=== PATIENT | male | born 1930 | race Caucasian/White ===

== ENCOUNTER 2017-02-01 14:31 | Emergency (ER) | payer MEDICARE ==
--- NOTE | 2017-02-01 16:08 | RAD ---
INDICATION: Several weeks LEFT lower extremity swelling. COMPARISON: No relevant prior exams available on the [facility] for comparison. TECHNIQUE: Giraldo scale, color Doppler, and spectral analysis of the deep veins of the LEFT lower extremity. Vessel compression, phasicity, and augmentation assessed. REPORT: Severe subcutaneous edema most prominent from the knee distal. The LEFT common femoral, great saphenous, profunda femoral, femoral, popliteal, peroneal, and posterior tibial veins are patent. Normal morphology 0.8 cm short axis LEFT inguinal lymph node without concern. Patency of the RIGHT common femoral vein documented. IMPRESSION: 1. No evidence for LEFT lower extremity deep venous thrombosis. 2. Extensive LEFT lower extremity subcutaneous edema.
[2017-02-01 16:34] VITALS: BP 142/74
--- NOTE | 2017-02-01 20:28 | UC ---
Odalys Hall Thomas, scribed for Kenny Darnell MD on 02/01/17 at 1616 . Lower Extremity/Ankle HPI - HPI Summary HPI Summary: The pt is a 86 y/o M presenting to Urgent Care after his physical therapist noticed earlier today that the patient had left lower extremity swelling. The patient denies constant LLE pain, although he notes LLE pain upon palpation. The patient also some redness to his LLE. When asked about the onset of this erythema, the patient suspects an onset two weeks ago with worsening redness in the last week. The patient was recently started on water pills. Pt additionally c/o chronic SOB and lower extremity warmness. Pt denies fevers and chills. - History of Current Complaint Chief Complaint: UCLowerExtremity Stated Complaint: LEG SWELLING Time Seen by Provider: 02/01/17 15:23 Hx Obtained From: Patient Onset/Duration: Lasting Hours - first noticed earlier today, Still Present Severity Currently: Moderate Aggravating Factor(s): Other - Palpation Alleviating Factor(s): Nothing - Allergies/Home Medications Allergies/Adverse Reactions: Allergies Allergy/AdvReac Type Severity Reaction Status Date / Time Erythromycin Allergy unk Verified 04/20/16 13:23 Iodinated Diagnostic Agents Allergy See Comment Verified 04/20/16 13:23 contrast dye Allergy kidney Uncoded 04/20/16 13:23 failure Home Medications: Home Medications Mirabegron (NF) [Myrbetriq (NF)] 50 mg PO DAILY 02/01/17 [History Confirmed ] Ranitidine HCl [Zantac] 150 mg PO DAILY 02/01/17 [History Confirmed 02/01/17] Torsemide TAB* [Demadex 20 MG*] 5 mg PO DAILY 02/01/17 [History Confirmed ] PMH/Surg Hx/FS Hx/Imm Hx Previously Healthy: No - Valvular disease, HTN, COPD - Surgical History Surgical History: Yes Surgery Procedure, Year, and Place: rotator cuff X2, knee replacement X2, carpal tunnel, hernia repair - Family History Known Family History: Positive: Hypertension - Social History Occupation: Retired Alcohol Use: None Alcohol Amount: 1 drink Substance Use Type: None Smoking Status (MU): Never Smoked Tobacco - Immunization History Most Recent Influenza Vaccination: UP TO DATE Most Recent Tetanus Shot: UP TO DATE Most Recent Pneumonia Vaccination: UP TO DATE Review of Systems Skin: Other - Lower extremity warmness Respiratory: Shortness Of Breath - chronic Musculoskeletal: Other: - LLE swelling, LLE pain upon palpation, LLE weakness Is Patient Immunocompromised?: No All Other Systems Reviewed And Are Negative: Yes Physical Exam Triage Information Reviewed: Yes Vital Signs: Initial Vital Signs Temp 97.5 F 02/01/17 15:06 Pulse 67 02/01/17 15:06 Resp 18 02/01/17 15:06 BP 125/88 02/01/17 15:06 Pulse Ox 96 02/01/17 15:06 Vital Signs Reviewed: Yes - Additional Comments VITAL SIGNS: Reviewed. GENERAL: Patient is a well developed and nourished who is lying comfortable in the stretcher. Patient is not in any acute respiratory distress. HEAD AND FACE: Normocephalic EYES: PERRLA, EOMI x 2. EARS: Hearing grossly intact. MOUTH: Oropharynx within normal limits. NECK: Supple, trachea is midline, no adenopathy, no JVD, no carotid bruit. CHEST: Symmetric, no tenderness at palpation LUNGS: Clear to auscultation bilaterally. No wheezing or crackles. CVS: Regular rate and rhythm, S1 and S2 present, no murmurs or gallops appreciated. ABDOMEN: Soft, non-tender. Bowel sounds are normal. No abdominal abnormal pulsations. EXTREMITIES: There is swelling in the left lower extremity 1+ with some erythema , especially in the anterior aspect of the leg. There are good pulses and good capillary refills. Full ROM in all major joints, no cyanosis or clubbing. NEURO: Alert and oriented x 3. No acute neurological deficits. Speech is normal and follows commands. SKIN: Dry and warm Diagnostics - Laboratory Diagnostic Studies Completed/Ordered: Ultrasound Bilateral Lower Extremity. Interpreted by radiologist. Impression: 1. No evidence for LEFT lower extremity deep venous thrombosis. 2. Extensive LEFT lower extremity subcutaneous edema. Urgent Care physician has reviewed this report and agrees. Lower Extremity Course/Dx - Course Course Of Treatment: The pt is a 86 y/o M presenting to Urgent Care after his physical therapist noticed earlier today that the patient had left lower extremity swelling. The patient denies constant LLE pain, although he notes LLE pain upon palpation. The patient also some redness to his LLE. When asked about the onset of this erythema, the patient suspects an onset two weeks ago with worsening redness in the last week. The patient was recently started on water pills. Pt additionally c/o chronic SOB and lower extremity warmness. Pt denies fevers and chills. The ultrasound of the LLE extremity is negative for DVT. The patient has 1+ edema, for which the patient was given Lasix. Also, the patient has had erythema for the last two weeks that has worsened in the last two days. Therefore, I believe the patient is developing cellulitis. I offered the patient to go to the emergency department for bloodwork and further workup, but the patient declined. Since the patient is not going to the emergency department, I decided to place the patient on Bactrim and instructed him to follow up with his primary care provider in two days. The patient was also instructed that if his symptoms worsen, he should go to the emergency department for further assessment and workup. - Differential Dx/Diagnosis Differential Diagnosis/HQI/PQRI: Bursitis, Cellulitis, DVT, Sprain, Strain Provider Diagnoses: Left lower extremity edema, cellulitis Discharge - Discharge Plan Condition: Stable Disposition: HOME Prescriptions: Sulfamethox/Trimethoprim DS* [Bactrim DS 800/160 TAB*] 1 tab PO BID #20 tab Patient Education Materials: Cellulitis (ED), Leg Edema (ED) Referrals: Bernarda Salas MD [Primary Care Provider] - 3 Days Additional Instructions: Follow up with your primary care provider in 3 days. Return to urgent care for any new or worsening symptoms. The documentation as recorded by the Odalys meyer Thomas accurately reflects the service I personally performed and the decisions made by , Kenny Darnell MD.
== END 2017-02-01 16:50 | disposition home or self-care (01) ==
LOC: UCEAST 14:31
DX: R60.9 Edema, unspecified (principal); L03.116 Cellulitis of left lower limb; I38 Endocarditis, valve unspecified
CPT/HCPCS: 99212; G0463

== ENCOUNTER 2017-03-07 16:32 | Inpatient (IN) | payer MEDICARE ==
--- NOTE | 2017-03-07 18:27 | RAD ---
INDICATION: Chest pain COMPARISON: March 06, 2017 TECHNIQUE: An AP portable view obtained at 0608 hours is submitted. FINDINGS: Bones/Soft Tissues: There are no acute bony findings. There is left shoulder arthroplasty. There is right shoulder rotator cuff repair. Cardiomediastinal: The cardiac silhouette is prominent as are the central pulmonary vessels. Lungs: There are no infiltrates. Pleura: Small bilateral pleural effusions. Other: None IMPRESSION: MILD INTERSTITIAL CONGESTION.
[2017-03-07 18:52] LABS: Hematocrit 28 % (42-52); Hemoglobin 9.1 g/dl (14.0-18.0); Mean Corpuscular HGB Conc 33 g/dl (31-36); Mean Corpuscular Hemoglobin 31 pg (27-31); Mean Corpuscular Volume 96 fL (80-94); Mean Platelet Volume 8 um3 (7.4-10.4); Red Blood Count 2.92 10^6/ul (4.0-5.4); Red Cell Distribution Width 16 % (10.5-15); White Blood Count 5.3 10^3/ul (3.5-10.8)
[2017-03-07 19:07] LABS: Albumin 3.6 g/dL (3.2-5.2); BUN/Creatinine Ratio 12.7 (8-20); Calcium 9.3 mg/dL (8.6-10.3); EGFR African American 19.6 (>60); EGFR Non-African American 15.2 (>60); Globulin 2.7 g/dL (2-4); Magnesium 2.5 mg/dL (1.9-2.7); Potassium 4.7 mmol/L (3.5-5.0); Total Bilirubin 0.5 mg/dL (0.2-1.0); Total Protein 6.3 g/dL (6.4-8.9)
[2017-03-07 19:14] LABS: Troponin I 0.16 ng/mL (<0.04)
[2017-03-07 19:35] LABS: TSH (Thyroid Stimulating Horm) 1.35 mcIU/mL (0.34-5.60)
[2017-03-07] MEDS ORDERED: Furosemide IV* 10 MG/ML VIAL (40 MG) IV ONE (19:41)
[2017-03-07] MEDS ORDERED: Nitroglycerin 2% OINT* 1 GM PAK TOPICAL ONE (19:41)
[2017-03-07] MEDS ORDERED: Aspirin TAB* 325 MG PO ONE (19:41)
[2017-03-07] MEDS ORDERED: Furosemide IV* 10 MG/ML VIAL (40 MG) IV SLOW PU ONE (21:06)
[2017-03-07] MEDS ORDERED: Ondansetron INJ* 2 MG/ML VIAL IV PRN (21:06)
[2017-03-07] MEDS ORDERED: Heparin VIAL(*) 5000 UNITS/ML VIAL (FIVE THOUSAND) SUBCUT SCH (22:00)
[2017-03-08] MEDS: Acetaminophen TAB* 325 MG PO PRN ×2 (00:04→07:56)
[2017-03-08] MEDS: Gabapentin CAP(*) 300 MG PO SCH ×2 (00:04→21:21)
[2017-03-08] MEDS: [UNRECOGNIZED DRUG - OTHER] TOPICAL PRN ×2 (03:56→07:21)
--- NOTE | 2017-03-08 04:27 | ED ---
Tiffanie Hall Emily, scribed for Darling Dubose MD on 03/07/17 at 1918 . Shortness of Breath - HPI Summary HPI Summary: This patient is an 87 year old M [facility] accompanied by daughter with a chief complaint of SOB that began one month ago. Pt was referred to [facility] by PMD for evaluation of bilateral pleural effusions found on a CXR. The patient rates the pain 0/10 in severity. Symptoms aggravated by walking. Symptoms alleviated by nothing. Patient reports calf swelling (chronic), blurred vision (chronic), and cough. Patient denies lightheadedness, dizziness, near syncope, headache, double vision, ear ache, sore throat, CP, chest tightness, neck pain, abd pain, back pain, hematochezia, hematuria, and rashes. - History of Current Complaint Chief Complaint: EDShortnessOfBreath Time Seen by Provider: 03/07/17 17:55 Hx Obtained From: Patient Onset/Duration: Sudden Onset, Lasting Weeks, Still Present Timing: Constant Current Severity: Mild Dyspnea At: Exertion Aggrevating Factors: Movement Alleviating Factors: Nothing Associated Signs & Symptoms: Cough (Nonproductive) - Allergy/Home Medications Allergies/Adverse Reactions: Allergies Allergy/AdvReac Type Severity Reaction Status Date / Time Erythromycin Allergy unk Verified 03/07/17 17:44 Iodinated Diagnostic Agents Allergy See Comment Verified 03/07/17 17:44 contrast dye Allergy kidney Uncoded 04/20/16 13:23 failure PMH/Surg Hx/FS Hx/Imm Hx Previously Healthy: No Endocrine/Hematology History: Denies: Hx Diabetes, Hx Thyroid Disease Cardiovascular History: Reports: Hx Aneurysm - aortic aneurysm, Hx Hypercholesterolemia, Hx Hypertension, Other Cardiovascular Problems/Disorders - Aortic stenosis, needs aortic valve replacement Denies: Hx Peripheral Vascular Disease Respiratory History: Reports: Hx Chronic Obstructive Pulmonary Disease (COPD), Hx Sleep Apnea - OJSE Denies: Hx Asthma GI History: Denies: Hx Ulcer History: Reports: Hx Benign Prostatic Hyperplasia, Hx Renal Disease, Other Problems/Disorders - CKD, RENAL FAILURE Musculoskeletal History: Reports: Hx Orthopedic Injury - hx broken ribs d/t chiropractic and d/t a fall Denies: Hx Arthritis, Hx Osteoporosis Sensory History: Reports: Hx Contacts or Glasses Opthamlomology History: Reports: Hx Contacts or Glasses Neurological History: Reports: Hx Peripheral Neuropathy, Other Neuro Impairments /Disorders - peripheral neuropathy Denies: Hx Headaches, Hx Transient Ischemic Attacks (TIA) Psychiatric History: Denies: Hx Depression - Surgical History Surgery Procedure, Year, and Place: rotator cuff X2, knee replacement X2, carpal tunnel, hernia repair Hx Anesthesia Reactions: No - Immunization History Date of Tetanus Vaccine: up to date Date of Influenza Vaccine: 2014 Infectious Disease History: No Infectious Disease History: Denies: Hx Hepatitis, Hx Human Immunodeficiency Virus (HIV), History Other Infectious Disease, Traveled Outside the [place] in Last 30 Days - Family History Known Family History: Positive: Hypertension - Social History Occupation: Retired Lives: Alone Alcohol Use: Occasionally Alcohol Amount: 1 drink Substance Use Type: Reports: None Hx Tobacco Use: No Smoking Status (MU): Never Smoked Tobacco Review of Systems Positive: Blurred Vision. Negative: Diplopia Negative: Sore Throat, Ear Ache Positive: Other - Negative chest tightness. Negative: Chest Pain Positive: Shortness Of Breath, Cough Positive: Other - Negative hematochezia. Negative: Abdominal Pain Negative: hematuria Positive: Edema, Other - Negative neck pain and back pain Positive: Bruising. Negative: Rash Neurological: Other - Negative lightheadedness Negative: Headache, Syncope Positive: Other - Negative hallucinations All Other Systems Reviewed And Are Negative: No Physical Exam - Summary Physical Exam Summary: Appearance: Alert, conversive, nontoxic appearing Skin: Warm, dry, no mottling, no rashes, no contusions HEENT: EOMI, PERRL, moist mucous membranes Neck: No masses on the neck, supple Respiratory: Breath sounds present, R-sided rhonchi, faint rhonchi L-side Cardiovascular: RRR, pulses are symmetrical in both lower and upper extremities , 2/6 systolic ejection murmur Abdomen: Soft, non-tender Bowel Sounds: Present Musculoskeletal: No CVA tenderness, no obvious deformity, moving all extremities in a grossly normal manner Neurological: A&Ox3, CN II-XII Intact, moving all extremities symmetrically Psychiatric: Normal affect and mood Triage Information Reviewed: Yes Vital Signs On Initial Exam: Initial Vitals Temp Pulse Resp BP Pulse Ox 97.5 F 87 20 125/64 95 03/07/17 16:39 03/07/17 16:39 03/07/17 16:39 03/07/17 16:39 03/07/17 16:39 Vital Signs Reviewed: Yes Diagnostics - Vital Signs Vital Signs Temp Pulse Resp BP Pulse Ox 03/07/17 19:00 84 21 93 03/07/17 18:30 76 15 154/83 91 03/07/17 18:00 80 21 141/83 91 03/07/17 17:30 81 20 137/67 93 03/07/17 17:27 139/81 03/07/17 16:39 97.5 F 87 20 125/64 95 - Laboratory Lab Results: Lab Results 03/07/17 03/07/17 03/07/17 Range/Units 18:35 18:35 18:35 WBC 5.3 (3.5-10.8) 10^3/ul RBC 2.92 L (4.0-5.4) 10^6/ul Hgb 9.1 L (14.0-18.0) g/dl Hct 28 L (42-52) % MCV 96 H (80-94) fL MCH 31 (27-31) pg MCHC 33 (31-36) g/dl RDW 16 H (10.5-15) % Plt Count 125 L (150-450) 10^3/ul MPV 8 (7.4-10.4) um3 Neut % (Auto) 75.9 (38-83) % Lymph % (Auto) 14.7 L (25-47) % Andrew % (Auto) 7.4 (1-9) % Eos % (Auto) 0.9 (0-6) % Baso % (Auto) 1.1 (0-2) % Absolute Neuts (auto) 4.0 (1.5-7.7) 10^3/ul Absolute Lymphs (auto) 0.8 L (1.0-4.8) 10^3/ul Absolute Monos (auto) 0.4 (0-0.8) 10^3/ul Absolute Eos (auto) 0 (0-0.6) 10^3/ul Absolute Basos (auto) 0.1 (0-0.2) 10^3/ul Absolute Nucleated RBC 0 10^3/ul Nucleated RBC % 0 Sodium 138 (133-145) mmol/L Potassium 4.7 (3.5-5.0) mmol/L Chloride 108 (101-111) mmol/L Carbon Dioxide 23 (22-32) mmol/L Anion Gap 7 (2-11) mmol/L BUN 48 H (6-24) mg/dL Creatinine 3.77 H (0.67-1.17) mg/dL Est GFR ( Amer) 19.6 (>60) Est GFR (Non-Af Amer) 15.2 (>60) BUN/Creatinine Ratio 12.7 (8-20) Glucose 98 (70-100) mg/dL Calcium 9.3 (8.6-10.3) mg/dL Magnesium 2.5 (1.9-2.7) mg/dL Total Bilirubin 0.50 (0.2-1.0) mg/dL AST 14 (13-39) U/L ALT 9 (7-52) U/L Alkaline Phosphatase 65 (34-104) U/L Troponin I Pending B-Natriuretic Peptide 2438 H ( - 100) pg/mL Total Protein 6.3 L (6.4-8.9) g/dL Albumin 3.6 (3.2-5.2) g/dL Globulin 2.7 (2-4) g/dL Albumin/Globulin Ratio 1.3 (1-3) TSH Pending Result Diagrams: 03/07/17 18:35 03/07/17 18:35 Lab Statement: Any lab studies that have been ordered have been reviewed, and results considered in the medical decision making process. - Radiology CXR Radiology Interpretation Completed By: Radiologist - CXR reveals, per radiologist, small bilateral pleural infusions, no infiltrates, mild interstitial congestion. Dr. Dubose has reviewed this radiology. - EKG 1922 Cardiac Rate: NL EKG Rhythm: Sinus Rhythm - 82 BPM EKG Interpretation: Prolonged QRS and QT, no AMI Course/Dx - Course Assessment/Plan: Offered admission twice. This patient is an 87 year old M presenting [facility] accompanied by daughter with a chief complaint of SOB that began one month ago. Pt was referred to [facility] by PMD for evaluation of bilateral pleural effusions found on a CXR. Physical Exam Findings. 2/6 systolic ejection murmur, belly soft, few crackles R sight, faint crackles on the L side. An EKG taken at 1922 reveals nml sinus rhythm at 82 BPM with prolonged QRS and QT, no AMI. CXR reveals, per radiologist, small bilateral pleural infusions, no infiltrates, mild interstitial congestion. Mild chronic anemia, chronic kidney disease at baseline, normal WBC, elevated troponin. We discussed patient care with Dr. Melissa and they recommended pt be admitted for further evaluation. The patient is agreeable with this plan. - Diagnoses Provider Diagnoses: Pleural effusion - Physician Notifications Discussed Care of Patient With: Franki Melissa Time Discussed With Above Provider: 20:00 Instructed by Provider To: Other - Consult with Dr. Melissa (hospitalist) at 1999. He agrees to admit pt. Discharge - Discharge Plan Condition: Stable Disposition: ADMITTED TO [facility] documentation as recorded by the Tiffanie meyer Emily accurately reflects the service I personally performed and the decisions made by , Darling Dubose MD.
[2017-03-08 04:53] LABS: Hematocrit 27 % (42-52); Hemoglobin 8.8 g/dl (14.0-18.0); Mean Corpuscular HGB Conc 33 g/dl (31-36); Mean Corpuscular Hemoglobin 31 pg (27-31); Mean Corpuscular Volume 95 fL (80-94); Mean Platelet Volume 8 um3 (7.4-10.4); Red Blood Count 2.84 10^6/ul (4.0-5.4); Red Cell Distribution Width 17 % (10.5-15)
[2017-03-08 04:54] LABS: Add Diff/Slide Review? Slide Review Added; Comments Flag Yes
--- NOTE | 2017-03-08 05:02 | HP ---
CC: Dr. Salas; Dr. Pollack * HISTORY AND PHYSICAL: DATE OF ADMISSION: 03/07/17 PRIMARY CARE PROVIDER: Dr. Salas. ATTENDING PHYSICIAN WHILE IN THE HOSPITAL: Franki Melissa MD * (report dictated by Benito Parrish NP) CHIEF COMPLAINT: 1. Shortness of breath. 2. Lower leg swelling. 3. Abnormal chest x-ray. HISTORY OF PRESENT ILLNESS: Mr. Mcgovern is an 87-year-old male patient who has a history of CKD, aortic stenosis, severe neuropathy, history of COPD, JOSE, hypertension, hyperlipidemia, history of chronic pain and a history of AAA. He comes into the ER today stating that over the last 2 weeks, he has had progressive worsening of lower extremity swelling, in addition to this he has also had progressive worsening shortness of breath. He has been having paroxysmal nocturnal dyspnea, in addition to this he has also been having orthopnea. He states to his knowledge, he has not gained any weight. He has been recently prescribed Demadex, which he has been taking 3 times a week and he also was on Lasix, which he has been taking the last couple of weeks but despite this it has not been improving. He has been more short of breath. [facility], they evaluated him, they ordered an outpatient x-ray and that x-ray showed bilateral effusions and at that point, he was deferred to the ER for further evaluation and care. He denied having any chest pain. There has been no recent fevers or chills. He does admit to having a cough that has been productive at times. He denies having any nausea, vomiting or any diarrhea or any abdominal discomfort and he denies having any syncopal episodes. He came into the ED, it was noted that his BNP was up, his troponin was up, and an x-ray consistent with small bilateral effusions and we are asked to evaluate for admission. PAST MEDICAL HISTORY: Significant for: 1. CKD. 2. Aortic stenosis. 3. Neuropathy. 4. COPD. 5. JOSE. He is noncompliant with the mask. 6. Hyperlipidemia. 7. Hypertension. 8. Chronic pain. 9. History of AAA. PAST SURGICAL HISTORY: 1. He has had hernia repair x3. 2. He has had bilateral knee surgeries and he had bilateral shoulder surgeries. MEDICATIONS: Home medications according to the list he provided includes: 1. Vitamin B 1 capsule p.o. daily. 2. Sodium bicarbonate 1300 mg p.o. before meals. 3. Vitamin D3, 1000 units p.o. daily. 4. Aspirin 81 mg daily. 5. Combivent 1 puff inhaled at bedtime. 6. Zantac 150 mg daily. 7. Omeprazole 20 mg daily. 8. Multivitamin 1 tablet daily. 9. Asmanex 1 puff inhaled daily. 10. Myrbetriq 50 mg daily. 11. Melatonin 12 mg at bedtime. 12. Gabapentin 600 mg p.o. daily. 13. Diltiazem 120 mg daily. 14. Demadex, he is taking actually 5 mg and he is taking this 3 times a week. 15. Hytrin 5 mg daily. ALLERGIES TO MEDICATIONS: Include IV DYE and ERYTHROMYCIN FAMILY HISTORY: Mother had 3 heart attacks, lived to the age of 94. Father at the age of 94, he from old age. SOCIAL HISTORY: He does not smoke, does not drink. Surrogate decision maker is his daughter. He does reside at [place]. REVIEW OF SYSTEMS: There is no documented fever. He denied any significant weight change. There was no double vision. He denied having any ear discharge. There was no rhinorrhea, no sore throat, no thyroid enlargement. Denied having any chest pain, there was orthopnea. There is nocturnal dyspnea. There is no abdominal pain. No nausea, no vomiting. No dysuria. No frequency. No seizure. No loss of consciousness. No pruritus and no skin ulcerations. Review of 14 systems was completed, all others negative. PHYSICAL EXAMINATION GENERAL: At this time, Mr. Mcgovern is an 87-year-old male patient, appears to be well-nourished, well-developed, sitting in the ED stretcher. He does not appear to be in any acute distress. VITAL SIGNS: Blood pressure 157/87, pulse 82, respirations 18, O2 sat was 89%, he is now requiring 2 L and he is about 98% to 97% on that, temperature is 97.5. HEENT: Head: Atraumatic, normocephalic. Eyes: EOMs are intact. Sclerae anicteric. Not pale. Throat: Oral mucosa appears to be moist. No oropharyngeal erythema. NECK: Supple. LUNGS: Are diminished at the bases, otherwise clear to auscultation bilaterally. No wheezes, rales, or rhonchi. HEART: Sounds S1, S2. Regular rate and rhythm. No murmurs, rubs, or gallops. ABDOMEN: Soft, flat, nontender. Bowel sounds are present. EXTREMITIES: Pulses are 2+ throughout. He has +2 pitting edema bilaterally. He had 5/5 strength. NEUROLOGIC: Neurologically, he is awake, alert, and oriented x3. Tongue is midline. Friction Welding Machine Operator are equal. No gross focal deficits. SKIN: Grossly intact. DIAGNOSTIC STUDIES/LAB DATA: WBC 5.3, RBC of 2.92, hemoglobin 9.1, hematocrit 28, platelet count of 125. Sodium 138, potassium 4.7, chloride 108, bicarb 23, BUN 48, creatinine of 3.77, glucose 98. Calcium 9.3, mag 2.5. Total bili 0.5. AST 14, ALT 9, alk phos 65. Troponin 0.16, which is actually down from his baseline. His BNP was 2438 and albumin was 3.6. TSH 1.35. Chest x-ray under my impression did show small bilateral pleural effusions. Radiology read this as mild interstitial congestion. He did have EKG obtained today, which showed a normal sinus rhythm at the rate of 82, no ST elevations or T-wave inversions. He did have LVH. I reviewed his previous EKG, it appeared to be similar. Old medical records were reviewed. ASSESSMENT AND PLAN: Mr. Mcgovern is an 87-year-old male patient coming into the ED today with complaints of shortness of breath and orthopnea and on evaluation was found what appears to be congestive heart failure. He will be admitted under inpatient status for: 1. Congestive heart failure: At this point, it does appear that he has mild congestive heart failure and does appear to be left heart failure. This could be diastolic. It is probably a combination related to the aortic stenosis and left ventricular hypertrophy. My plan would be to go ahead and give him 80 of IV Lasix, he got 40 in the ED about an hour ago. We will give him another 40 now, in addition to this we will check his weight still and repeat the echo to see what his LV function is doing and to reevaluate his aortic stenosis. He is not a candidate for valve replacement. At this point, he has been evaluated and he does not want aggressive medial care and we will continue to follow. 2. Chronic kidney disease: Again, we will need to watch his creatinine closely in order to diuresing him as we could worsen his kidney failure, but again in the setting of him being hypoxic and orthopneic and having fluid on the chest x-ray, BNP going up, I think we need to diurese and follow closely. I did touch base with Dr. Pollack, he is in agreement. 3. Elevated troponins: Probably secondary to left ventricular hypertrophy strain. He is not interested in cath, nor would he be a candidate because he does not want dialysis and at this point we will go ahead and trend his troponins, get an echo. He is not having any chest pain and the EKG appears to be stable. 4. Neuropathy: Continue his meds as prescribed. 5. Chronic obstructive pulmonary disease: Continue meds as prescribed. 6. Obstructive sleep apnea: Follow with his primary. He is noncompliant with mask. 7. Hypertension: Continue meds as prescribed. 8. Hyperlipidemia: Follow primary. 9. Chronic pain: Continue p.r.n. medications. 10. History of abdominal aortic aneurysm: Follow with primary. 11. DVT prophylaxis: He will be placed on heparin subcu. 12. Code status: DNR. 13. Fluids, electrolytes, and nutrition: He can have a heart healthy diet. TIME SPENT: Time spent on this admission was 60 minutes, greater than half of that time was spent [id number] with the patient obtaining my history and physical, the other half time was spent going over the plan of care with the patient and implementing plan of care. I did discuss the plan of care with my attending, Dr. Franki Melissa, he is in agreement. BENITO PARRISH, LUKASZ [id number]/CPS #: [id number] DAVID
[2017-03-08 05:05] LABS: BUN/Creatinine Ratio 13.9 (8-20); Calcium 9.1 mg/dL (8.6-10.3); EGFR African American 17.7 (>60); EGFR Non-African American 13.8 (>60); Potassium 4.3 mmol/L (3.5-5.0)
[2017-03-08] MEDS: Sodium Bicarbonate (ANTACID)* 650 MG TAB PO SCH ×3 (07:56→15:59)
[2017-03-08] MEDS: Aspirin EC Low Dose* 81 MG TAB.EC PO SCH (07:56)
[2017-03-08] MEDS: Heparin VIAL(*) 5000 UNITS/ML VIAL (FIVE THOUSAND) SUBCUT SCH ×2 (07:56→15:59)
[2017-03-08] MEDS: Famotidine TAB* 20 MG PO SCH (07:56)
[2017-03-08] MEDS: Mirabegron (NF) 50 MG TAB PO SCH (07:56)
[2017-03-08] MEDS: Terazosin CAP* 5 MG PO SCH (07:56)
[2017-03-08] MEDS: Omeprazole CAP* 20 MG PO SCH (07:56)
[2017-03-08] MEDS: Diltiazem CD CAP* 120 MG PO SCH (07:56)
[2017-03-08] MEDS: Mometasone 220 MCG MDI INH SCH (08:55)
[2017-03-08] MEDS ORDERED: Morphine INJ* 4 MG/ML 1 ML CARPUJECT IV ONE (10:30)
[2017-03-08] MEDS ORDERED: Morphine INJ* 4 MG/ML 1 ML CARPUJECT ONE (10:38)
[2017-03-08 10:58] LABS: Urine Bacteria Absent (Absent); Urine Bilirubin Negative (Negative); Urine Glucose Negative (Negative); Urine Nitrite Negative (Negative)
--- NOTE | 2017-03-08 14:45 | ECHO ---
Patient: BRITTNY LONDON [facility] Rec#: [id number] : 1930 Date: 03/08/2017 Age: 87y Height: 160.02 cm / 63.0 in Weight: 62.14 kg / 137.0 lbs Sex: M BSA: 1.65 Room#: 434 Admit Date#: 03/07/2017 Type: Inpatient Referring: Benito Parrish NP Reading: Loan Kimball MD Mold Breaker: Juanita Paz RDCS CC: Bernarda Salas MD Transthoracic Echocardiogram Indication: CHF BP: 127/62 HR: 78 Rhythm: NSR Findings History: CKD, , COPD, JOSE, HLD, HTN, AAA. Technical Comments: The study quality is good. Completed at 1230. Left Ventricle: The left ventricular chamber size is normal. Severe concentric left ventricular hypertrophy is observed. There is global hypokinesis of the left ventricle with minor regional variation. There is moderate to severely decreased left ventricular systolic function. The estimated ejection fraction is 35-40%. The left ventricular diastolic filling pattern is consistent with pseudonormalization. Left Atrium: The left atrium is severely dilated. Right Ventricle: The right ventricle is mildly dilated. The right ventricular global systolic function is mildly reduced. Right Atrium: The right atrium is mildly dilated. Aortic Valve: The aortic valve is trileaflet. Moderate aortic leaflet calcification is visualized. Systolic excursion of the aortic valve cusps is reduced. There is trace to mild aortic regurgitation. There is moderate to severe aortic stenosis. The mean gradient of the aortic valve is 36.99 mmHg. The aortic valve area, by VTI's, is calculated at 0.63 cm2. Mitral Valve: There is mitral annular calcification. Mitral valve leaflet mobility is mildly restricted. There is mild to moderate mitral regurgitation. 2 jets, central and medially direceted. There is mild mitral stenosis. Tricuspid Valve: The tricuspid valve leaflets are moderately thickened. There is moderate to severe tricuspid regurgitation. The right ventricular systolic pressure is estimated at 60 mmHg. There is evidence of severe pulmonary hypertension. There is no tricuspid stenosis. Pulmonic Valve: The pulmonic valve appears normal. There is mild to moderate pulmonic regurgitation. There is no pulmonic stenosis. Pericardium: There is no significant pericardial effusion. Aorta: There is no dilatation of the ascending aorta. The aortic arch is not well visualized. The aortic root is normal in size. Pulmonary Artery: The main pulmonary artery is not well visualized. Venous: The inferior vena cava appears normal in size. There is less than 50% respiratory change in the inferior vena cava dimension. Conclusions Severe concentric left ventricular hypertrophy is observed. There is global hypokinesis of the left ventricle with minor regional variation. The estimated ejection fraction is 35-40%. The left ventricular diastolic filling pattern is consistent with pseudonormalization. The right ventricle is mildly dilated. The right ventricular systolic function is mildly reduced. The left atrium is severely dilated. Heavily calcified aortic valve with mild aortic regurgitation. There is moderate to severe aortic stenosis: mean gradient is 37 mmHg, the CATHLEEN by VTI's, is calculated at 0.63 cm2. DI 0.14, 0.16. Aortic valve area may be overestimated due to the depressed ejection fraction. There is mitral annular calcification. There is mild mitral stenosis. There is mild to moderate mitral regurgitation, closer to moderate with 2 jets, central and medially direceted. There is moderate to severe tricuspid regurgitation. There is evidence of severe pulmonary hypertension estimated at 60 mmHg. There is mild to moderate pulmonic regurgitation. No prior echo available to compare. Measurements Name Value Normal Range RVIDd (AP) 2D 3.7 cm (0.9 - 2.6) RVDdMajor (2D) 4.1 cm (2.2 - 4.4) RAd ISD 4CH 5.3 cm (3.4 - 4.9) RA (A4C)W 4.8 cm (2.9 - 4.6) IVSd (2D) 1.7 cm (0.6 - 1) LVPWd (2D) 1.7 cm (0.6 - 1) LVIDd (2D) 3.7 cm (3.6 - 5.4) LVIDs (2D) 3.1 cm - LV FS (2D) 13 % (25 - 45) Aortic Annulus 1.6 cm (1.4 - 2.6) Ao root diameter (2D) 2.8 cm (2.1 - 3.5) Ascending Ao 3.3 cm (2.1 - 3.4) LA dimension (AP) 2D 4.2 cm (2.3 - 3.8) LAd ISD 4CH 6.2 cm (2.9 - 5.3) LA ISD 4CH W 5.4 cm (2.5 - 4.5) Name Value Normal Range LA ESV SP 4CH (A/L) 93 ml - LA ESV SP 2CH (A/L) 126 ml - LA ESV BP (A/L) 114 ml - LA ESV BP (A/L) index 69 ml/m2 - LA ESV SP 4CH (MOD) 78 ml - LA ESV SP 2CH (MOD) 113 ml - Name Value Normal Range MV E-wave Vmax 1.8 m/sec - MV deceleration time 211.4 msec - MV A-wave Vmax 0.87 m/sec - MV E:A ratio 2.03 ratio - LV septal e' Vmax 0.04 m/sec - LV lateral e' Vmax 0.04 m/sec - LV E:e' septal ratio 45 ratio - LV E:e' lateral ratio 45 ratio - Name Value Normal Range AV Vmax 3.8 m/sec - AV VTI 83.8 cm - AV peak gradient 57.74 mmHg - AV mean gradient 36.99 mmHg - LVOT diameter 2 cm - LVOT Vmax 0.8 m/sec - LVOT VTI 16.9 cm - LVOT peak gradient 2.59 mmHg - LVOT mean gradient 1.3 mmHg - CATHLEEN (continuity Vmax) 0.66 cm2 - CATHLEEN (continuity VTI) 0.63 cm2 - Name Value Normal Range MV Vmax 2.09 m/sec - MV VTI 43.83 cm - MV peak gradient 17.5 mmHg - MV mean gradient 5.18 mmHg - MV PHT 71.3 msec - MR Vmax 5.47 m/sec - MR VTI 180.2 cm - MR flow (PISA) 128.56 ml/sec - MR ERO 0.23 cm2 - MR PISA radius 0.7 cm - MR alias Vmax 47 cm/sec - MVA (PHT) 3.08 cm2 - MVA (continuity VTI) 1.17 cm2 - Name Value Normal Range TR Vmax 3.6 m/sec - TR peak gradient 52 mmHg - RAP 8 mmHg - RVSP 60 mmHg - IVC diameter 2 cm - Name Value Normal Range PV Vmax 0.68 m/sec - PV peak gradient 1.87 mmHg -
[2017-03-08] MEDS: Morphine INJ* 2 MG/ML 1 ML SYRINGE (TWO MG - NEW SYRINGE VERSION) IV PRN (17:49)
--- NOTE | 2017-03-08 18:10 | PN ---
Subjective Date of Service: 03/08/17 Interval History: This is an 87 yo male with critical , CKD, and CHF who was admitted with acute CHF with c/o SOB and LE edema. Patient has was diuressed with IV Lasix with positive effect. Patient reports improvement in his edema and SOB today. Spoke with pt's PCP, Dr Salas, today who reported that patient had met with a Hospice nurse yesterday prior to admission and she had initiated the referral as patient is not interested in TAVR or dialysis. Patient's daughter felt that he had seen some good symptoms benefit from regular epogen injections and she was concerned that he would be unable to receive those injections if they signed on to Hospice. Objective Active Medications: Acetaminophen (Tylenol Tab*) 650 mg PO Q4H PRN PRN Reason: FEVER/PAIN Last Admin: 03/08/17 07:56 Dose: 650 mg Albuterol/Ipratropium (Combivent Respimat(Nf)) 1 puff INH BEDTIME BELINDA PRN Reason: Protocol Aspirin (Aspirin Ec Low Dose*) 81 mg PO DAILY BELINDA Last Admin: 03/08/17 07:56 Dose: 81 mg Diltiazem HCl (Cardizem Cd Cap*) 120 mg PO DAILY BELINDA Last Admin: 03/08/17 07:56 Dose: 120 mg Famotidine (Pepcid Tab*) 20 mg PO DAILY BELINDA PRN Reason: Protocol Last Admin: 03/08/17 07:56 Dose: 20 mg Gabapentin (Neurontin Cap(*)) 300 mg PO BEDTIME BELINDA Last Admin: 03/08/17 00:04 Dose: 300 mg Heparin Sodium (Porcine) (Heparin Vial(*)) 5,000 units SUBCUT Q8H BELINDA Last Admin: 03/08/17 15:59 Dose: 5,000 units Mirabegron (Myrbetriq (Nf)) 50 mg PO DAILY BELINDA Last Admin: 03/08/17 07:56 Dose: Not Given Mometasone Furoate (Asmanex 220 Mcg Mdi *) 1 puff INH DAILY BELINDA PRN Reason: Protocol Last Admin: 03/08/17 08:55 Dose: 1 inh Morphine Sulfate (Morphine Inj (Syringe)*) 2 mg IV Q2H PRN PRN Reason: PAIN Last Admin: 03/08/17 17:49 Dose: 2 mg Pto Non Formulary Med* Aspercreme With Lido Topical 1 admin TOPICAL DAILY PRN PRN Reason: RT LE PAIN Last Admin: 03/08/17 07:21 Dose: 1 admin Omeprazole (Prilosec Cap*) 20 mg PO DAILY [facility] Last Admin: 03/08/17 07:56 Dose: 20 mg Ondansetron HCl (Zofran Inj*) 4 mg IV Q6H PRN PRN Reason: NAUSEA Sodium Bicarbonate (Sodium Bicarbonate (Antacid)*) 1,300 mg PO AC [facility] Last Admin: 03/08/17 15:59 Dose: 1,300 mg Terazosin HCl (Hytrin Cap*) 5 mg PO DAILY [facility] Last Admin: 03/08/17 07:56 Dose: 5 mg Vital Signs: Temp Pulse Resp BP Pulse Ox 97.4 F 72 18 121/55 98 03/08/17 15:30 03/08/17 15:30 03/08/17 17:49 03/08/17 15:30 03/08/17 15:30 Oxygen Devices in Use Now: Nasal Cannula Appearance: Relatively well appearing elderly male in NAD. Respiratory: Symmetrical Chest Expansion and Respiratory Effort, Clear to Auscultation Cardiovascular: RRR, - - 4/6 systolic murmur Abdominal: NL Sounds; No Tenderness; No Distention Extremities: - - 1-2+ pitting LE edema Neurological: Alert and Oriented x 3 Result Diagrams: 03/08/17 04:37 03/08/17 04:37 Additional Lab and Data: . Assess/Plan/Problems-Billing Assessment: This is an 87 yo male with critical , CHF, HTN, HLD, COPD and JOSE with CKD IV who presented with c/o SOB and worsening LE edema, admitted with acute heart failure. - Patient Problems (1) Acute on chronic systolic heart failure Comment: Positive effect of IV Lasix Followed by Dr Xiao Secondary to critical Careful not to overdiuress and reduce preload required to overcome (2) Aortic stenosis Comment: Critical , last CATHLEEN 0.4cm2 Patient has been offered and declined TAVR Referred to Hospice by Dr Salas which patient and his daughter have been hesitant to accept Spoke with Dr Xiao who agreed that Hospice is appropriate and has encouraged that decision (3) CKD (chronic kidney disease) stage 4, GFR 15-29 ml/min Comment: Follows with Dr Pollack Patient has declined dialysis Cr near baseline, but noted slightly worse after IV diuresis (4) Elevated troponin Comment: Likely due to demand related to acute CHF (5) COPD (chronic obstructive pulmonary disease) Comment: No acute exacerbation (6) HLD (hyperlipidemia) (7) HTN (hypertension) Comment: Normotensive (8) DVT prophylaxis Comment: heparin sc (9) DNR (do not resuscitate) Comment: Signed [facility] Status and Disposition: Inpatient. Met with patient and his daughter at length regarding Hospice. Major barrier is whether he could still receive Aranesp injections as his daughter feels it helps improve his energy. Discussed whether he would like to pay out of pocket and provided retail quote of $600 per 60 mcg injection from [facility] pharmacy. Patient and his daughter will contemplate this. Anticipate likely dc home to [place] tomorrow.
[2017-03-08] MEDS ORDERED: Cephalexin CAP* 250 MG PO SCH (21:00)
[2017-03-08] MEDS ORDERED: Albuterol/Ipratropium RESP(NF) MDI (Combivent Respimat) INH SCH (21:00)
[2017-03-09] MEDS: Morphine INJ* 2 MG/ML 1 ML SYRINGE (TWO MG - NEW SYRINGE VERSION) IV PRN (00:01)
[2017-03-09] MEDS: Heparin VIAL(*) 5000 UNITS/ML VIAL (FIVE THOUSAND) SUBCUT SCH ×2 (00:02→08:15)
[2017-03-09] MEDS: Mirabegron (NF) 50 MG TAB PO SCH (08:10)
[2017-03-09] MEDS: Diltiazem CD CAP* 120 MG PO SCH (08:14)
[2017-03-09] MEDS: Sodium Bicarbonate (ANTACID)* 650 MG TAB PO SCH ×2 (08:14→11:51)
[2017-03-09] MEDS: Aspirin EC Low Dose* 81 MG TAB.EC PO SCH (08:14)
[2017-03-09] MEDS: Omeprazole CAP* 20 MG PO SCH (08:14)
[2017-03-09] MEDS: Famotidine TAB* 20 MG PO SCH (08:14)
[2017-03-09] MEDS: Terazosin CAP* 5 MG PO SCH (08:15)
[2017-03-09] MEDS ORDERED: Torsemide TAB* 20 MG PO SCH (09:00)
[2017-03-09] MEDS: Mometasone 220 MCG MDI INH SCH (09:10)
[2017-03-09 09:27] LABS: BUN/Creatinine Ratio 14.3 (8-20); Calcium 9.4 mg/dL (8.6-10.3); EGFR African American 18.4 (>60); EGFR Non-African American 14.3 (>60); Potassium 4.7 mmol/L (3.5-5.0)
[2017-03-09 12:09] VITALS: BP 123/61
--- NOTE | 2017-03-09 13:12 | CONSULT ---
Palliative / Hospice Consult Ordering Provider: Benito Parrish - Subjective Code Status: DNR Advance Directives Location: Filed at Another Location [facility] Part A Completed: No [facility] Part E Completed:: No - History or Present Illness History or Present Illness: This 87 year old man with Stage 4 CKD, severe to critical , CHF, neuropathy, HTN, HLD, COPD, JOSE, and AAA was recently referred for evaluation for hospice, in light of his end-stage renal and cardiac disease. The patient had an entire hospice admission visit, but then decided to defer admission to hospice so he could have his newly discovered bilateral pleural effusions evaluated. He has developed air hunger with dyspnea at rest, orthopnea and PND, and was admitted here with elevated BNP. He is now ready for discharge. His pleural effusions are undoubtedly due to his worsening CHF. He has obtained relief with diuresis here. Lab Values: Abnormal Lab Results 03/08/17 03/09/17 14:41 08:56 Sodium 136 Potassium 4.7 Chloride 105 Carbon Dioxide 21 L Anion Gap 10 BUN 57 H Creatinine 3.98 H Est GFR ( Amer) 18.4 Est GFR (Non-Af Amer) 14.3 BUN/Creatinine Ratio 14.3 Glucose 151 H Calcium 9.4 Troponin I 0.18 H* Laboratory Last Values WBC 5.0 10^3/ul (3.5-10.8) 03/08/17 04:37 RBC 2.84 10^6/ul (4.0-5.4) L 03/08/17 04:37 Hgb 8.8 g/dl (14.0-18.0) L 03/08/17 04:37 Hct 27 % (42-52) L 03/08/17 04:37 MCV 95 fL (80-94) H 03/08/17 04:37 MCH 31 pg (27-31) 03/08/17 04:37 MCHC 33 g/dl (31-36) 03/08/17 04:37 RDW 17 % (10.5-15) H 03/08/17 04:37 Plt Count 129 10^3/ul (150-450) L 03/08/17 04:37 MPV 8 um3 (7.4-10.4) 03/08/17 04:37 Neut % (Auto) 75.1 % (38-83) 03/08/17 04:37 Lymph % (Auto) 14.1 % (25-47) L 03/08/17 04:37 [place] % (Auto) 8.3 % (1-9) 03/08/17 04:37 Eos % (Auto) 1.4 % (0-6) 03/08/17 04:37 Baso % (Auto) 1.1 % (0-2) 03/08/17 04:37 Absolute Neuts (auto) 3.8 10^3/ul (1.5-7.7) 03/08/17 04:37 Absolute Lymphs (auto) 0.7 10^3/ul (1.0-4.8) L 03/08/17 04:37 Absolute Monos (auto) 0.4 10^3/ul (0-0.8) 03/08/17 04:37 Absolute Eos (auto) 0.1 10^3/ul (0-0.6) 03/08/17 04:37 Absolute Basos (auto) 0.1 10^3/ul (0-0.2) 03/08/17 04:37 Absolute Nucleated RBC 0 10^3/ul 03/08/17 04:37 Nucleated RBC % 0.1 03/08/17 04:37 Sodium 136 mmol/L (133-145) 03/09/17 08:56 Potassium 4.7 mmol/L (3.5-5.0) 03/09/17 08:56 Chloride 105 mmol/L (101-111) 03/09/17 08:56 Carbon Dioxide 21 mmol/L (22-32) L 03/09/17 08:56 Anion Gap 10 mmol/L (2-11) 03/09/17 08:56 BUN 57 mg/dL (6-24) H 03/09/17 08:56 Creatinine 3.98 mg/dL (0.67-1.17) H 03/09/17 08:56 Est GFR ( Amer) 18.4 (>60) 03/09/17 08:56 Est GFR (Non-Af Amer) 14.3 (>60) 03/09/17 08:56 BUN/Creatinine Ratio 14.3 (8-20) 03/09/17 08:56 Glucose 151 mg/dL (70-100) H 03/09/17 08:56 Calcium 9.4 mg/dL (8.6-10.3) 03/09/17 08:56 Magnesium 2.5 mg/dL (1.9-2.7) 03/07/17 18:35 Total Bilirubin 0.50 mg/dL (0.2-1.0) 03/07/17 18:35 AST 14 U/L (13-39) 03/07/17 18:35 ALT 9 U/L (7-52) 03/07/17 18:35 Alkaline Phosphatase 65 U/L (34-104) 03/07/17 18:35 Troponin I 0.18 ng/mL (<0.04) H* 03/08/17 14:41 B-Natriuretic Peptide 2438 pg/mL (-100) H 03/07/17 18:35 Total Protein 6.3 g/dL (6.4-8.9) L 03/07/17 18:35 Albumin 3.6 g/dL (3.2-5.2) 03/07/17 18:35 Globulin 2.7 g/dL (2-4) 03/07/17 18:35 Albumin/Globulin Ratio 1.3 (1-3) 03/07/17 18:35 TSH 1.35 mcIU/mL (0.34-5.60) 03/07/17 18:35 Urine Color Straw 03/07/17 23:34 Urine Appearance Clear 03/07/17 23:34 Urine pH 5.0 (5-9) 03/07/17 23:34 Ur Specific [place] 1.008 (1.010-1.030) L 03/07/17 23:34 Urine Protein Negative (Negative) 03/07/17 23:34 Urine Ketones Negative (Negative) 03/07/17 23:34 Urine Blood 1+ (Negative) H 03/07/17 23:34 Urine Nitrate Negative (Negative) 03/07/17 23:34 Urine Bilirubin Negative (Negative) 03/07/17 23:34 Urine Urobilinogen Negative (Negative) 03/07/17 23:34 Ur Leukocyte Esterase Negative (Negative) 03/07/17 23:34 Urine WBC (Auto) Trace(0-5/hpf) (Absent) 03/07/17 23:34 Urine RBC (Auto) Trace(0-2/hpf) (Absent) 03/07/17 23:34 Ur Squamous Epith Cells Present (Absent) H 03/07/17 23:34 Urine Bacteria Absent (Absent) 03/07/17 23:34 Urine Glucose Negative (Negative) 03/07/17 23:34 - Objective Active Medications: Acetaminophen (Tylenol Tab*) 650 mg PO Q4H PRN PRN Reason: FEVER/PAIN Last Admin: 03/08/17 07:56 Dose: 650 mg Albuterol/Ipratropium (Combivent Respimat(Nf)) 1 puff INH BEDTIME BELINDA PRN Reason: Protocol Last Admin: 03/08/17 20:21 Dose: Not Given Aspirin (Aspirin Ec Low Dose*) 81 mg PO DAILY [facility]INDA Last Admin: 03/09/17 08:14 Dose: 81 mg Cephalexin HCl (Keflex Cap*) 250 mg PO Q24H [facility]INDA Last Admin: 03/08/17 21:22 Dose: 250 mg Diltiazem HCl (Cardizem Cd Cap*) 120 mg PO DAILY [facility] Last Admin: 03/09/17 08:14 Dose: 120 mg Famotidine (Pepcid Tab*) 20 mg PO DAILY [facility]INDA PRN Reason: Protocol Last Admin: 03/09/17 08:14 Dose: 20 mg Gabapentin (Neurontin Cap(*)) 300 mg PO BEDTIME [facility]INDA Last Admin: 03/08/17 21:21 Dose: 300 mg Heparin Sodium (Porcine) (Heparin Vial(*)) 5,000 units SUBCUT Q8H [facility]IN[facility] Last Admin: 03/09/17 08:15 Dose: 5,000 units Mirabegron (Myrbetriq (Nf)) 50 mg PO DAILY [facility] Last Admin: 03/09/17 08:10 Dose: Not Given Mometasone Furoate (Asmanex 220 Mcg Mdi *) 1 puff INH DAILY [facility]INDA PRN Reason: Protocol Last Admin: 03/09/17 09:10 Dose: 1 inh Morphine Sulfate (Morphine Inj (Syringe)*) 2 mg IV Q2H PRN PRN Reason: PAIN Last Admin: 03/09/17 00:01 Dose: 2 mg Pto Non Formulary Med* Aspercreme With Lido Topical 1 admin TOPICAL DAILY PRN PRN Reason: RT LE PAIN Last Admin: 03/08/17 07:21 Dose: 1 admin Omeprazole (Prilosec Cap*) 20 mg PO DAILY [facility] Last Admin: 03/09/17 08:14 Dose: 20 mg Ondansetron HCl (Zofran Inj*) 4 mg IV Q6H PRN PRN Reason: NAUSEA Sodium Bicarbonate (Sodium Bicarbonate (Antacid)*) 1,300 mg PO AC [facility] Last Admin: 03/09/17 11:51 Dose: 1,300 mg Terazosin HCl (Hytrin Cap*) 5 mg PO DAILY [facility] Last Admin: 03/09/17 08:15 Dose: 5 mg Torsemide (Demadex*) 20 mg PO DAILY [facility] Last Admin: 03/09/17 08:14 Dose: 20 mg Vital Signs: Vital Signs: Temp Pulse Resp BP Pulse Ox 97.4 F 74 18 123/61 95 03/09/17 11:37 03/09/17 11:37 03/09/17 08:00 03/09/17 11:37 03/09/17 11:37 Patient Weight: Weight 134 lb 11.2 oz Intake and Output: Intake & Output 03/07/17 03/08/17 03/09/17 03/10/17 06:59 06:59 06:59 06:59 Intake Total 375 1390 470 Output Total 215 615 Balance 160 775 470 Weight 135 lb 134 lb 11.2 oz Intake: Oral 375 1390 470 Output: Urine 215 615 Other: Estimated Void Small Small # Bowel Movements 0 0 # Voids 1 1 ADLs: Meal Record Start: 03/07/17 22: 06 Freq: DAILY@0900,1400,1800 Status: Active Protocol: Document 03/08/17 09:00 (Rec: 03/08/17 09:17 [id number]) Document 03/08/17 13:31 (Rec: 03/08/17 13:31 [email or web address]) Document 03/08/17 14:00 (Rec: 03/08/17 15:42 [email or web address]) Document 03/08/17 17:58 [id number] (Rec: 03/08/17 17:58 [id number]) Document 03/09/17 09:00 (Rec: 03/09/17 09:07 [email or web address]) Intake and Output Start: 03/07/17 22: 06 Freq: DAILY@0600,1400,2200 Status: Active Protocol: Document 03/08/17 06:00 [id number] (Rec: 03/08/17 06:41 [id number]) Document 03/08/17 14:00 [id number] (Rec: 03/08/17 15:42 [id number]) Document 03/08/17 22:00 [id number] (Rec: 03/08/17 22:57 [id number]) Document 03/09/17 06:00 [id number] (Rec: 03/09/17 06:56 [id number]) General Impression: Elderly, talkative man in NAD. Head: Symmetrical Eyes: No Scleral Icterus Ears/Nose/Mouth/Throat: Clear Oropharnyx Neck: Trachea Midline Cardiovascular: RRR, - - 4/6 systolic murmur at LUSB Respiratory: Symmetrical Chest Expansion and Respiratory Effort Abdominal: NL Sounds; No Tenderness; No Distention Extremities: - - 1-2+ pitting LE edema Neurological: Alert and Oriented x 3 - Assessment Assessment: The patient has refused dialysis and any intervention for his severe , and so is hospice appropriate with both these diagnoses. His daughter has apparently insisted that he continue to receive erythropoietin injections, although the patient has never noted any symptomatic relief with these injections. Since they are not formulary and represent life-prolonging efforts rather than palliation, erythropoietin injections are not part of a hospice plan of care. However, the patient is welcome to pay out of pocket for these treatments while he is receiving hospice services. They cannot be billed to any other insurance coverage. If the patient opts to refuse hospice, he will undoubtedly be returning to the hospital for end of life symptomatology as his valvular stenosis and kidney failure progress. Thanks for referring this patient to our attention. - Plan Consult Plan (MU): Hospice - Time On Unit Date of Evaluation: 03/09/17 Hospice Consult Time in: 12:30 Hospice Consult Time Out: 13:30 Hospice Consult Time Total: 60 > 50% of Time Spend In Counseling or Coordinating Care: Yes
--- NOTE | 2017-03-10 04:06 | DS ---
CC: Dr. Salas; Dr. Xiao; [facility], [place]* DISCHARGE SUMMARY: DATE OF ADMISSION: 03/07/17 DATE OF DISCHARGE: 03/09/17 PRIMARY CARE PROVIDER: Dr. Salas. CONSULTING PALLIATIVE PHYSICIAN: Dr. Dyson. PRIMARY ADOPTION COORDINATOR: Dr. Xiao. DISCHARGING PROVIDER: MAGGIE Manning SUPERVISING PHYSICIAN: Dr. Axel Weston* (dictated by MAGGIE Manning). PRIMARY DISCHARGE DIAGNOSES: 1. Acute systolic heart failure with critical aortic stenosis. 2. 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 3. Hypoxia requiring supplemental O2 at discharge secondary to heart failure and aortic stenosis. SECONDARY DISCHARGE DIAGNOSES: 1. Obstructive sleep apnea. 2. Hypertension. 3. Hyperlipidemia. 4. Chronic obstructive pulmonary disease. DISCHARGE MEDICATIONS: 1. DuoNeb 1 neb inhaled q.4 to 6 hours as needed for shortness of breath. 2. Aspirin 81 mg p.o. daily. 3. Vitamin D3 1000 units p.o. daily. 4. Diltiazem 120 mg p.o. daily. 5. Gabapentin 300 mg p.o. at bedtime. 6. Melatonin 10 mg p.o. at bedtime. 7. Myrbetriq 50 mg p.o. daily. 8. Mometasone 220 mcg 1 puff inhaled daily. 9. Multivitamin 1 tablet p.o. daily. 10. Omeprazole 20 mg p.o. daily. 11. Ranitidine 150 mg p.o. daily. 12. Sodium bicarbonate 1300 mg p.o. at meal time. 13. Terazosin 5 mg p.o. daily. 14. Torsemide 10 mg p.o. daily. 15. Tramadol 50 mg p.o. q.6 hours as needed for pain. 16. Vitamin B 1 capsule p.o. daily. Medication changes: 1. Torsemide increased to 10 mg from 5 mg daily. 2. Tramadol 50 mg p.o. q.6 hours as needed for pain in his left shoulder. HOSPITAL IMAGIN. Chest x-ray shows bilateral pleural effusions with pulmonary venous congestion. 2. Transthoracic echocardiogram demonstrates left ventricular ejection fraction at 35% to 40% with global pattern of hypokinesis and severe LVH with diastolic dysfunction. Right ventricular systolic function is mildly reduced. Moderate to severe aortic stenosis with an CATHLEEN measured at 0.6 cm2. HOSPITAL COURSE: This is an 87-year-old gentleman with severe aortic stenosis, chronic systolic heart failure, chronic kidney disease, COPD, obstructive sleep apnea, hypertension, hyperlipidemia who presented to the emergency department with complaints of shortness of breath. The patient had been complaining of progressive dyspnea and lower extremity edema for a couple of weeks leading up to his hospitalization and had been seen by his primary care provider on a couple of occasions with increase in diuretics without significant improvement in symptoms. The patient was evaluated in the emergency department, was noted to have moderately elevated troponin to 0.16. No acute ischemic changes appreciated on initial EKG. CBC seemed to be near baseline with a hemoglobin near 9 and chemistries showed his creatinine of approximately 3.7, which is near baseline and a BNP significantly elevated at 2438. Chest x-ray showed bilateral pleural effusions and moderate pulmonary venous congestion and the patient was subsequently admitted for acute heart failure. The patient's severe aortic stenosis, heart failure, and chronic kidney disease are well known to the patient's primary care provider, literacy consultant and he is followed by Dr. Pollack for Nephrology as well. The patient has been offered a TAVR which he has declined as he is concerned about the potential risk that he may require dialysis due to the dye load from procedure following and has declined this intervention when offered on numerous occasions. The patient has verbalized that he does not desire dialysis if that were to become necessary in the future. For these reasons, the patient's primary care provider, Dr. Salas , had referred the patient to Hospice and had met with an intake nurse the day of his hospitalization. There, he had declined admission to hospice and referred to the emergency department instead for evaluation of his dyspnea. A concern regarding sign on to hospice is that he would be no longer able to get his Aranesp injection which he utilizes every 5 to 6 weeks under the direction of Dr. Pollack for treatment of his anemia. The patient's daughter feels that he has some increased energy and better mood with this therapy and does not want to discontinue this treatment in favor of hospice. The patient was diuresed with IV Lasix with good response in both of his lower extremity edema as well as his complaints of dyspnea. There was extensive conversation regarding referral to hospice during the patient's hospitalization by both myself and met with palliative physician, Dr. Shannan Dyson. The patient is agreeable with hospice sign on, but he and his daughter are still concerned about the availability of the Aranesp therapy. DISPOSITION AND FOLLOWUP PLAN: The patient is being discharged to home where he resides at [facility] in an independent living situation. Referral has been initiated to Hospice and the patient is agreeable to sign on if there is some way for him to still receive his Aranesp therapy as necessary. Plan of care has been discussed with the patient's primary care provider, literacy consultant, and daughter as well as the patient. Hospice will follow up with the patient as an outpatient. Medication changes include increasing torsemide as noted above and introduced tramadol for pain control of his left arm which was not investigated thoroughly as to cause the pain, but appears to be musculoskeletal in origin. TIME SPENT: Greater than 60 minutes were spent on this discharge. MAGGIE MANNING [id number]/[facility] #: [id number] DAVID
--- NOTE | 2017-03-10 06:04 | HP ---
H&P (Free Text) History and Physical: LATE ENTRY 03/07/20172014 Mr Mcgovern is an 87M HX aortic stenosis, COPD, JOSE not on CPAP, & CKD presenting with acute heart failure. He will be admitted for diuresis, monitoring, & medical optimization.
== END 2017-03-09 15:49 | disposition hospice, home (50) | DRG 291 ==
LOC: ED 16:32 → MEDTELE 20:16
PROVIDERS: ADMIT Hospitalist; ATTEND Internal Medicine
DX: I13.0 Hypertensive heart and chronic kidney disease with heart failure and stage 1 through stage 4 chronic kidney disease, or unspecified chronic kidney disease (principal); I50.23 Acute on chronic systolic (congestive) heart failure; G62.9 Polyneuropathy, unspecified; N18.4 Chronic kidney disease, stage 4 (severe); J44.9 Chronic obstructive pulmonary disease, unspecified; E78.5 Hyperlipidemia, unspecified; G47.33 Obstructive sleep apnea (adult) (pediatric); N40.0 Benign prostatic hyperplasia without lower urinary tract symptoms; Z96.653 Presence of artificial knee joint, bilateral; I71.4 Abdominal aortic aneurysm, without rupture; G89.29 Other chronic pain; Z66 Do not resuscitate; R09.02 Hypoxemia; Z79.82 Long term (current) use of aspirin; Z72.89 Other problems related to lifestyle; Z82.49 Family history of ischemic heart disease and other diseases of the circulatory system; Z88.1 Allergy status to other antibiotic agents; Z91.041 Radiographic dye allergy status
CPT/HCPCS: 36415; 71010; 80048; 80053; 81003; 81015; 83735; 83880; 84443; 84484; 85025; 93005; 93306; 94640; 94760; A9270-GY; J1644; J1940; J2270